=== PATIENT | female | born 1965 | race African-American/Black ===

== ENCOUNTER → 2017-01-11 | Outpatient (CLI) | payer BC ==
[~2017-01-11] MED LIST: ALDACTONE25 MG PO; BIOTIN5000 MCG; BUPROPION XL300 M1; LAMOTRIGINE ER200 MG PO; LASIX20 MG PO; LOTENSIN20 MG PO; TOPROL XL50 MG PO; VITAMIN D35000 UNIT PO
--- NOTE | ~2017-01-11 | CR97 ---
[facility] A Service of [facility] & [facility] RADIOLOGY TEXT RESULTS PATIENT: KEVIN BAUTISTA LOCATION: [facility] : 67 UNIT #: [id number] AGE: [address]: Ion Javier MD SEX: F ORDER DR: [id number] [facility] [address] [place], [place] [address] [id number] O MR#: [id number] Acc #: [id number] NAME: KEVIN BAUTISTA : 1965 SEX: F STUDY DATE/TIME: 01/11/2017 8:58 UNIT: [facility] ROOM: STUDY DESCRIPTION: CR Esophagram Attending Physician: Ion Javier M.D. Referring Physician: Ion Javier M.D. Ordering Physician: Ion Javier M.D. Primary Care Physician: No Primary Care Physician MEDICAL IMAGING REPORT This report is preliminary unless electronic signature is present EXAM Barium esophagram. INDICATION Morbid obesity. Preop for Lap-Band surgery. Fluoro time 0.3 minutes. 9 fluoroscopic images were taken. FINDINGS There is a small sliding hiatal hernia. No evidence for stricture. Normal motility. IMPRESSION Small hiatal hernia, otherwise unremarkable. Dictated by... Hill Jerome M.D. THIS IS AN ELECTRONICALLY VERIFIED REPORT Hill Jerome M.D. at 01/11/2017 4:05 PM MARCO A/kate TD: 01/11/2017 10:47 JOB #: [id number] MEDICAL IMAGING REPORT Page 1 of 1 COPY
--- NOTE | ~2017-01-11 | EKG ---
PATIENT: KEVIN BAUTISTA UNIT #: [id number] Ventricular Rate: 57 BPM Atrial Rate: 57 BPM P-R Interval: 198 ms QRS Duration: 92 ms Q-T Interval: 458 ms QTC Calculation(Bezet): 445 ms P [place]: 22 degrees Calculated R [place]: 30 degrees Calculated T [place]: 30 degrees Diagnosis Line: Sinus bradycardia Diagnosis Line: Otherwise normal ECG Diagnosis Line: No previous ECGs available Diagnosis Line: Confirmed by KORI GARZA MD ([id number]) on Diagnosis Line: 01/11/2017 11:21:42 PM INTERPRETING MD: TRE
--- NOTE | ~2017-01-11 | CR63 ---
[facility] A Service of [facility] & [facility] RADIOLOGY TEXT RESULTS PATIENT: KEVIN BAUTISTA LOCATION: [facility] : 67 UNIT #: [id number] AGE: [address]: Ion Javier MD SEX: F ORDER DR: [id number] [facility] [address] [place], [place] [address] [id number] O MR#: [id number] Acc #: [id number] NAME: KEVIN BAUTISTA : 1965 SEX: F STUDY DATE/TIME: 01/11/2017 7:59 UNIT: [facility] ROOM: STUDY DESCRIPTION: CR Chest 2 View Attending Physician: Ion Javier M.D. Referring Physician: Ion Javier M.D. Ordering Physician: Ion Javier M.D. Primary Care Physician: Primary Care Physician No MEDICAL IMAGING REPORT This report is preliminary unless electronic signature is present EXAM Chest PA and lateral HISTORY Preop Lap-Band and paraesophageal hernia repair. The cardiovascular configuration is normal and the lungs are clear. CONCLUSION PA and lateral examination of the chest upright shows a good expansion of the parenchyma with a normal distribution of the pulmonary vascularity. There is no indication of congestion, effusion, infiltrate, tumor, or nodular density. The pleural reflections and diaphragmatic contours are normal. The cardiac silhouette and mediastinal anatomy is within normal limits. IMPRESSION Normal chest. Dictated by... Ion Farrar M.D. THIS IS AN ELECTRONICALLY VERIFIED REPORT Ion Farrar M.D. at 01/11/2017 5:18 PM Leonides TD: 01/11/2017 09:24 JOB #: [id number] MEDICAL IMAGING REPORT Page 1 of 1 COPY
[2017-01-11 08:55] LABS: HEMATOCRIT 36.1 % (35.0-45.0); HEMOGLOBIN 11.8 gm/dL (12.0-16.0); MEAN CELL VOLUME 92.8 FL (83-96); MEAN CORPUSCULAR HEMOGLOBIN 30.3 PG (28-34); MEAN CORPUSCULAR HGB CONC 32.7 g/dL (30-36); MEAN PLATELET VOLUME 8.4 FL (6.5-11.5); RED BLOOD COUNT 3.89 X10e (3.90-5.30); RED CELL DISTRIBUTION WIDTH 13.6 % (11.0-15.5); WHITE BLOOD COUNT 5.3 X10e3 (4.0-10.5)
[2017-01-11 10:20] LABS: ALBUMIN SERUM 3.7 g/dL (3.5-5.0); BILIRUBIN,TOTAL 0.8 mg/dL (0.2-2.0); BUN/CREATININE RATIO 15.38; CALCIUM SERUM 9.1 mg/dL (8.4-10.2); CREATININE SERUM 1.3 mg/dL (0.6-1.4); GLOM FILT RATE Estimated 55.4 mL/min (>60); POTASSIUM 4.4 mmol/L (3.5-5.1); PROTEIN TOTAL SERUM 6.2 g/dL (6.0-8.3)
== END | disposition home or self-care (01) ==
LOC: CRAD 07:28
PROVIDERS: Surgery
DX: Z01.818 Encounter for other preprocedural examination (principal); E66.01 Morbid (severe) obesity due to excess calories; K44.9 Diaphragmatic hernia without obstruction or gangrene
CPT/HCPCS: 36415; 71020; 74220; 80053; 80061; 84443; 85027; 93005

== ENCOUNTER → 2017-01-23 | Day surgery (SDC) | payer BC ==
--- NOTE | ~2017-01-23 | CR7 ---
[facility] A Service of [facility] & [facility] RADIOLOGY TEXT RESULTS PATIENT: KEVIN BAUTISTA LOCATION: [facility] : 67 UNIT #: [id number] AGE: [address]: Ion Javier MD SEX: F ORDER DR: [id number] [facility] [address] [place], [place] [address] [id number] O MR#: [id number] Acc #: [id number] NAME: KEVIN BAUTISTA : 1965 SEX: F STUDY DATE/TIME: 01/23/2017 11:27 UNIT: [facility] ROOM: STUDY DESCRIPTION: CR Abdomen Single AP View Attending Physician: Ion Javier M.D. Ordering Physician: Ion Javier M.D. Primary Care Physician: Generic Doctor Not In System MEDICAL IMAGING REPORT This report is preliminary unless electronic signature is present EXAM KUB 01/23/2017 INDICATIONS Status post gastric band placement today. Abdominal pain. FINDINGS Supine KUB was obtained. Gastric band is present with phi angle of about 80 degrees. The port is in the left lower abdomen. Visualized bowel gas pattern is normal. IMPRESSION Gastric band in place with phi angle of about 80 degrees. Dictated by... López Dominguez Jr., M.D. THIS IS AN ELECTRONICALLY VERIFIED REPORT López Dominguez Jr., M.D. at 01/23/2017 5:00 PM MARILOU/january TD: 01/23/2017 13:31 JOB #: [id number] MEDICAL IMAGING REPORT Page 1 of 1 COPY
--- NOTE | ~2017-01-23 | OR ---
Unit #: [id number] #: [id number] Patient: KEVIN BAUTISTA [id number] [address] [place], [place] [address] [id number] O MR#: [id number] NAME: KEVIN BAUTISTA ROOM: Date of Procedure: 01/23/2017 Admission Date: 01/23/2017 Surgeon: Ion Javier M.D. : 1965 Attending Physician: Ion Javier M.D. OPERATIVE REPORT PREOPERATIVE DIAGNOSIS Chronic morbid obesity, BMI 39. POSTOPERATIVE DIAGNOSES 1. Chronic morbid obesity, BMI 39. 2. Paraesophageal hiatal hernia. PROCEDURE PERFORMED 1. Laparoscopic adjustable gastric band. 2. Laparoscopic paraesophageal hiatal hernia repair. PRINCIPAL INVESTIGATOR López Guzman M.D. ANESTHESIA General endotracheal anesthesia. ESTIMATED BLOOD LOSS Minimal. IV FLUIDS 800 crystalloid. COMPLICATIONS None. INDICATIONS FOR PROCEDURE The patient is a young lady who presents with chronic morbid obesity. DESCRIPTION OF PROCEDURE The patient was taken to the operating room and placed in supine position. General anesthesia was induced. The abdomen was prepped and draped. A 3-cm incision was then made left of the midline. A 10-mm Visiport was then placed intraabdominal under direct vision. The abdomen was insufflated to 15 mmHg with CO2. The patient was then placed in a steep reversed Trendelenburg. General inspection of the abdomen revealed what appeared to be a paraesophageal hernia. This was identified with a defect at the diaphragm using anterior palpation with the instrument. We then made a small incision in the subxiphoid region. A Kaylah liver retractor was then placed intraabdominal and used to retract the left lobe of the liver upward to further expose the paraesophageal hernia and GE junction. I then placed a 5-mm port in the right upper quadrant, a 10-mm Unit #: [id number] #: [id number] Patient: KEVIN BAUTISTA port in the left upper quadrant, and another 5-mm port in the left lower quadrant. The stomach was retracted medial and downward. Upon retracting the stomach, we took down the paraesophageal ligament, exposing the right and left daniela at the paraesophageal hernia. Any hernia sac was reduced. We then repaired the paraesophageal hernia using interrupted #0 Ethibond sutures in a wtbsul-tr-zbigl type fashion. This formed a snug repair to the anterior esophagus. We then retracted the stomach medially and further exposed the angle of His using Bovie electrocautery. The stomach was then retracted laterally. We then took down the hepatogastric ligament with Bovie electrocautery. This exposed the right daniela. Using blunt dissection, I created a retrogastric tunnel from this point to the angle of His. The band was then placed intraabdominal through the 10-mm port site. This was then brought through the retrogastric tunnel in a pars flaccida technique. The band was then closed anteriorly to form a 20-mL to 25-mL anterior gastric pouch. The fundus was then secured to the anterior pouch to prevent movement around the stomach using two interrupted #0 Ethibond sutures. A third suture was then used as a gathering stitch from the lesser curve to the anterior stomach, gathering and imbricating the remaining fundus of the stomach. The tubing was then brought out through the midline 10-mm port site. All ports and the Kaylah liver retractor were removed under direct vision with no evidence of abdominal hemorrhage. A polypropylene mesh was then secured to the posterior face of the laparoscopic band port. This was secured using #0 Ethibond suture. This was then cut to shape. The port was then connected to the tubing and placed into a subcutaneous pocket just anterior to the rectus sheath. Its position was then confirmed. All tubing was then placed intraabdominal. The wounds were then closed with interrupted 4-0 Vicryl. The patient tolerated the procedure well and was sent to the recovery room in good condition. Dictated by... Spencer Alfaro/indira TD: 01/23/2017 13:07 JOB #: [id number] OPERATIVE REPORT Page 1 of 1 X Ion Javier MD X PROCEDURE OPERATIVE NOTE
== END | disposition home or self-care (01) ==
LOC: CSUR 07:34 → EDBD 10:00 → CSUR 10:00
DX: E66.01 Morbid (severe) obesity due to excess calories (principal); K44.9 Diaphragmatic hernia without obstruction or gangrene; K21.9 Gastro-esophageal reflux disease without esophagitis; I11.0 Hypertensive heart disease with heart failure; I50.9 Heart failure, unspecified; I42.9 Cardiomyopathy, unspecified; M19.90 Unspecified osteoarthritis, unspecified site; F32.9 Major depressive disorder, single episode, unspecified; Z72.4 Inappropriate diet and eating habits; Z68.39 Body mass index [BMI] 39.0-39.9, adult; Z88.0 Allergy status to penicillin; Z88.2 Allergy status to sulfonamides; Z90.49 Acquired absence of other specified parts of digestive tract; Z90.710 Acquired absence of both cervix and uterus; Z90.721 Acquired absence of ovaries, unilateral
CPT/HCPCS: 74000; C1781; J0330; J1100; J1650; J1885; J2250; J2405; J3010; J3370